=== PATIENT | male | born 1955 | race Caucasian/White ===

== ENCOUNTER 2022-09-17 09:50 | Emergency (ER) | payer MEDICARE | END 2022-09-17 11:34 | disposition home or self-care (01) | LOC: CSHERS 09:50 | DX: M25.562 Pain in left knee (principal); I10 Essential (primary) hypertension; E78.5 Hyperlipidemia, unspecified | CPT/HCPCS: 36416 ==

== ENCOUNTER 2023-05-06 16:17 | Inpatient (IN) | payer MEDICARE ==
[~2023-05-06 16:17] MED LIST: Iopamidol 300 61% 100 ML VIAL FS ONE
[2023-05-06 17:09] LABS: #Monocytes 1.5 10x3/uL (0.0-1.1); #Neutrophils 14.7 10x3/uL (1.5-8.4); %Basophils 0.1 % (0.0-2.0); %Lymphocytes 3.6 % (18.0-47.0); %Monocytes 8.6 % (0.0-10.0); %Neutrophils 87.3 % (40.0-75.0); Hematocrit 42.1 % (38.8-50.0); Hemoglobin 14.6 g/dL (13.5-17.5); Mean Corpuscular HGB CONC 34.7 g/dL (32.0-36.0); Mean Corpuscular Hemoglobin 32.4 pg (27.0-33.0); Mean Corpuscular Volume 93.6 fl (81.2-95.1); Mean Platelet Volume 10.6 fl (7.4-10.4); Platelet Count 144 10x3/uL (150-450); RBC Distribution Width 12.3 % (11.5-14.5); White Blood Cell (WBC) Count 16.8 10x3/uL (3.5-10.5)
[2023-05-06] MEDS ORDERED: Morphine 4 MG/ML VIAL ONE (17:14)
[2023-05-06] MEDS ORDERED: Ondansetron PF 4 MG/2 ML Vial ONE (17:14)
[2023-05-06 17:27] LABS: ALT (SGPT) 44 U/L (8-55); AST (SGOT) 52 U/L (5-34); Albumin 4.4 g/dL (3.4-4.8); Alkaline Phosphatase 80 U/L (40-110); Anion Gap 17 mmol/L (10-20); BUN (Urea Nitrogen) 27 mg/dL (8.4-25.7); Bilirubin, Total 1.2 mg/dL (0.2-1.2); Calc. Creatinine Clearance 0 mL/min (70-130); Calcium 9.4 mg/dL (7.8-10.44); Carbon Dioxide 23 mmol/L (23-31); Chloride 104 mmol/L (98-107); Estimated GFR 59; Globulin 2.6 g/dL (2.4-3.5); Glucose 108 mg/dL (80-115); Lipase 29 U/L (8-78); Potassium 4.9 mmol/L (3.5-5.1); Sodium 139 mmol/L (136-145)
[2023-05-06] MEDS ORDERED: Piperacillin/Tazobactam 4.5 GM VIAL ONE (18:38)
[2023-05-06] MEDS ORDERED: Ondansetron PF 4 MG/2 ML Vial IVP PRN (20:50)
[2023-05-06 21:58] VITALS: BMI 34.2
[2023-05-06] MEDS ORDERED: Sodium Chloride 0.9% 1,000 ML IV SCH (22:00)
[2023-05-06] MEDS ORDERED: Carvedilol 25 MG TAB PO SCH (22:00)
[2023-05-06] MEDS ORDERED: Morphine 4 MG/ML VIAL SLOW IVP PRN (22:01)
[2023-05-06] MEDS: Rosuvastatin 20 MG TAB PO SCH (22:37)
[2023-05-06] MEDS: Acetaminophen 325 MG TAB PO PRN (22:37)
[2023-05-06] MEDS: Piperacillin/Tazobactam 3.375 GM in Sodium Chloride 0.9% 100 ML IVPB SCH (22:38)
[2023-05-07 06:01] LABS: #Monocytes 1.7 10x3/uL (0.0-1.1); #Neutrophils 8.5 10x3/uL (1.5-8.4); %Basophils 0.1 % (0.0-2.0); %Eosinophils 0.3 % (0.0-6.0); %Lymphocytes 10.2 % (18.0-47.0); %Monocytes 15.1 % (0.0-10.0); %Neutrophils 73.8 % (40.0-75.0); Hematocrit 35.9 % (38.8-50.0); Hemoglobin 12.3 g/dL (13.5-17.5); Mean Corpuscular HGB CONC 34.3 g/dL (32.0-36.0); Mean Corpuscular Volume 96.2 fl (81.2-95.1); Mean Platelet Volume 10.9 fl (7.4-10.4); Platelet Count 131 10x3/uL (150-450); RBC Distribution Width 12.6 % (11.5-14.5); Red Blood Cell (RBC) Count 3.73 10x6/uL (4.32-5.72); White Blood Cell (WBC) Count 11.5 10x3/uL (3.5-10.5)
[2023-05-07 06:16] LABS: Anion Gap 15 mmol/L (10-20); BUN (Urea Nitrogen) 27 mg/dL (8.4-25.7); Calc. Creatinine Clearance 74 mL/min (70-130); Calcium 8.6 mg/dL (7.8-10.44); Carbon Dioxide 22 mmol/L (23-31); Chloride 107 mmol/L (98-107); Estimated GFR 49; Glucose 104 mg/dL (80-115); Potassium 4.2 mmol/L (3.5-5.1); Sodium 140 mmol/L (136-145)
[2023-05-07] MEDS: Piperacillin/Tazobactam 3.375 GM in Sodium Chloride 0.9% 100 ML IVPB SCH ×3 (06:50→23:37)
[2023-05-07] MEDS: Acetaminophen 325 MG TAB PO PRN ×3 (06:54→20:55)
[2023-05-07] MEDS: Carvedilol 25 MG TAB PO SCH ×2 (09:02→16:18)
[2023-05-07] MEDS: Sodium Chloride 0.9% 1,000 ML IV SCH ×3 (09:02→23:38)
[2023-05-07] MEDS: Rosuvastatin 20 MG TAB PO SCH (20:54)
[2023-05-07] MEDS ORDERED: Apixaban 5 MG TAB PO SCH (21:00)
[2023-05-08] MEDS: Sodium Chloride 0.9% 1,000 ML IV SCH (02:03)
[2023-05-08 04:15] LABS: #Eosinphils 0.1 10x3/uL (0.0-0.5); #Neutrophils 4.8 10x3/uL (1.5-8.4); %Basophils 0.3 % (0.0-2.0); %Eosinophils 1.8 % (0.0-6.0); %Lymphocytes 12.1 % (18.0-47.0); %Monocytes 15.1 % (0.0-10.0); %Neutrophils 70.3 % (40.0-75.0); Hematocrit 36.8 % (38.8-50.0); Hemoglobin 12.2 g/dL (13.5-17.5); Mean Corpuscular HGB CONC 33.2 g/dL (32.0-36.0); Mean Corpuscular Hemoglobin 31.7 pg (27.0-33.0); Mean Corpuscular Volume 95.6 fl (81.2-95.1); Mean Platelet Volume 10.8 fl (7.4-10.4); Platelet Count 122 10x3/uL (150-450); RBC Distribution Width 12.6 % (11.5-14.5); Red Blood Cell (RBC) Count 3.85 10x6/uL (4.32-5.72); White Blood Cell (WBC) Count 6.8 10x3/uL (3.5-10.5)
[2023-05-08 04:20] LABS: Anion Gap 13 mmol/L (10-20); BUN (Urea Nitrogen) 17 mg/dL (8.4-25.7); Calc. Creatinine Clearance 89 mL/min (70-130); Calcium 8.4 mg/dL (7.8-10.44); Carbon Dioxide 21 mmol/L (23-31); Chloride 112 mmol/L (98-107); Estimated GFR 62; Glucose 155 mg/dL (80-115); Potassium 3.9 mmol/L (3.5-5.1); Sodium 142 mmol/L (136-145)
[2023-05-08] MEDS: Piperacillin/Tazobactam 3.375 GM in Sodium Chloride 0.9% 100 ML IVPB SCH ×3 (06:25→22:53)
[2023-05-08] MEDS: Acetaminophen 325 MG TAB PO PRN (06:34)
[2023-05-08] MEDS: Carvedilol 25 MG TAB PO SCH ×2 (08:43→17:29)
[2023-05-08] MEDS: Apixaban 5 MG TAB PO SCH ×2 (08:43→21:32)
[2023-05-08] MEDS ORDERED: Rosuvastatin 20 MG TAB PO SCH (21:00)
[2023-05-08] MEDS ORDERED: Labetalol HCl 100 MG/20 ML VIAL SLOW IVP SCH (21:15)
[2023-05-08] MEDS: Rosuvastatin 20 MG TAB PO SCH (21:32)
[2023-05-09 05:06] LABS: #Eosinphils 0.3 10x3/uL (0.0-0.5); #Monocytes 1.3 10x3/uL (0.0-1.1); #Neutrophils 5.4 10x3/uL (1.5-8.4); %Basophils 0.4 % (0.0-2.0); %Eosinophils 3.1 % (0.0-6.0); %Lymphocytes 15.2 % (18.0-47.0); %Monocytes 16.1 % (0.0-10.0); Hematocrit 36.7 % (38.8-50.0); Hemoglobin 12.2 g/dL (13.5-17.5); Mean Corpuscular HGB CONC 33.2 g/dL (32.0-36.0); Mean Corpuscular Hemoglobin 31.9 pg (27.0-33.0); Mean Corpuscular Volume 95.8 fl (81.2-95.1); Mean Platelet Volume 10.9 fl (7.4-10.4); Platelet Count 130 10x3/uL (150-450); RBC Distribution Width 12.4 % (11.5-14.5); Red Blood Cell (RBC) Count 3.83 10x6/uL (4.32-5.72); White Blood Cell (WBC) Count 8.3 10x3/uL (3.5-10.5)
[2023-05-09 05:08] LABS: Anion Gap 13 mmol/L (10-20); BUN (Urea Nitrogen) 12 mg/dL (8.4-25.7); Calc. Creatinine Clearance 88 mL/min (70-130); Calcium 8.7 mg/dL (7.8-10.44); Carbon Dioxide 22 mmol/L (23-31); Chloride 111 mmol/L (98-107); Estimated GFR 60; Glucose 94 mg/dL (80-115); Sodium 142 mmol/L (136-145)
[2023-05-09] MEDS ORDERED: Amoxicillin/Potassium Clav 875 MG TAB PO SCH (06:00)
[2023-05-09] MEDS: Carvedilol 25 MG TAB PO SCH (06:28)
[2023-05-09] MEDS ORDERED: Empagliflozin 25 MG TAB PO SCH (09:00)
[2023-05-09] MEDS ORDERED: Ezetimibe 10 MG TAB PO SCH (09:00)
[2023-05-09] MEDS: Apixaban 5 MG TAB PO SCH (10:18)
[2023-05-09 12:30] VITALS: BP 152/85; TEMP 98.9
[2023-05-10] MEDS ORDERED: Amlodipine 5 MG TAB PO SCH (09:00)
== END 2023-05-09 13:34 | disposition home or self-care (01) | DRG 394 ==
LOC: CSHERS 16:17 → CSHTELE 21:10
PROVIDERS: ADMIT Internal Medicine; ATTEND Emergency Medicine
DX: K35.80 Unspecified acute appendicitis (principal); I48.20 Chronic atrial fibrillation, unspecified; I25.10 Atherosclerotic heart disease of native coronary artery without angina pectoris; I10 Essential (primary) hypertension; E78.5 Hyperlipidemia, unspecified; K21.9 Gastro-esophageal reflux disease without esophagitis; Z82.49 Family history of ischemic heart disease and other diseases of the circulatory system; Z90.49 Acquired absence of other specified parts of digestive tract; Z95.0 Presence of cardiac pacemaker; Z98.890 Other specified postprocedural states; Z79.01 Long term (current) use of anticoagulants; Z79.899 Other long term (current) drug therapy; Z86.718 Personal history of other venous thrombosis and embolism
CPT/HCPCS: 36415; 74177; 80048; 80053; 83605; 83690; 84145; 84484; 85025; 86140; 93005; 94760; 94762; 96361; 96365; 96375; J2270; J2405; J2543; J3490; J7050; Q9967